=== PATIENT | male | born 1965 | race American Indian/Alaskan Native ===

== ENCOUNTER 2017-10-27 17:08 | Emergency (ER) | payer OTHER ==
[2017-10-27] MEDS ORDERED: NORCO 5/325 PO ONE (23:34)
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
[2017-10-27] MEDS ORDERED: FLEXERIL PO ONE (23:35)
--- NOTE | 2017-10-28 00:21 | Cat Scan Report ---
FINAL REPORT EXAM: CT LUMBAR SPINE WO CON HISTORY: lower back pain with radiculopathy TECHNIQUE: Routine axial imaging was obtained of the lumbar spine with sagittal coronal reconstructions. FINDINGS: The disc heights and alignment appear normal. There is no evidence of fracture. There is mild facet arthropathy changes bilaterally at the L5-S1 level. There is mild left-sided facet arthropathy changes at the L3-4 level. There is mild bulging of the annuli at the L3-4 and L4-5 levels with borderline canal size at both levels. Nerve root impingement is not seen. The surrounding soft tissues are unremarkable. IMPRESSION: Mild bulging of the annuli at the L3-4 and L4-5 levels with borderline canal size at both levels. Bilateral facet arthropathy changes the L5-S1 level and on the left side at the L3-4 levels. No evidence of fracture.
--- NOTE | 2017-10-28 00:26 | Cat Scan Report ---
FINAL REPORT EXAM: CT CERVICAL SPINE WO CON HISTORY: neck pain with radiculopathy TECHNIQUE: Routine axial imaging was obtained of the cervical spine without IV contrast with sagittal coronal reconstructions. FINDINGS: At the C2-C3 level there is [id number] narrowing of the disc. The canal size is normal. The nerve roots exit normally. The facet joints are well maintained At the C3-C4 level the disc height is preserved. The canal size is normal. The nerve roots exit normally. The facet joints are well maintained. At the C4-C5 level the disc height is preserved. The canal size is normal. The nerve roots exit normally. The facet joints are well maintained. At the C5-C6 level there is moderate narrowing of the disc with endplate spurring. The canal size is normal. There is left-sided neural foraminal impingement by spur formation. At the C6 cc level the disc height is preserved. The canal size is normal. The nerve roots exit normally. The overall alignment is normal. The prevertebral soft tissues appear normal. C1-C2 articulation appears intact. IMPRESSION: Degenerative arthritic changes of the C2-C3 and C5-C6 levels as described.
[2017-10-28 01:31] VITALS: BP 122/81
== END 2017-10-28 01:30 | disposition home or self-care (01) ==
LOC: ED 17:08
DX: S16.1XXA Strain of muscle, fascia and tendon at neck level, initial encounter (principal); M54.42 Lumbago with sciatica, left side; M54.12 Radiculopathy, cervical region; M51.36 Other intervertebral disc degeneration, lumbar region; F17.200 Nicotine dependence, unspecified, uncomplicated; V43.52XA Car driver injured in collision with other type car in traffic accident, initial encounter; Y93.89 Activity, other specified; Y92.89 Other specified places as the place of occurrence of the external cause; Y99.8 Other external cause status
CPT/HCPCS: 72125; 72131

== ENCOUNTER 2018-04-13 18:26 | Emergency (ER) | payer OTHER ==
[2018-04-13 18:32] VITALS: BP 129/75
[2018-04-13] MEDS ORDERED: MOTRIN ONE (21:13)
[2018-04-13] MEDS ORDERED: TYLENOL ONE (21:16)
[2018-04-13] MEDS ORDERED: TYLENOL PO ONE (21:16)
[2018-04-13] MEDS ORDERED: MOTRIN PO ONE (21:17)
--- NOTE | 2018-04-13 21:49 | Emergency Department Report ---
ED Back Pain/Injury HPI - General Chief Complaint: Back Pain/Injury Stated Complaint: LOWER BACK PAIN Time Seen by Provider: 04/13/18 21:25 Source: patient, family Limitations: No Limitations - History of Present Illness Initial Comments: This is a 52-year-old male here complaining of lower back pain that started 6 days ago. He said he fell out of a box truck at work. He reports that pain is radiating down his left lower extremity. Pain is 8 out of 10 and a can. Denies any loss of bowel or bladder function. He said he had a x-ray done when the accident happened through his work place and they stated that his back was fine. He said he states can Motrin for pain but is not helping his pain. Denies any numbness or tingling to her extremities. Pain is localized to his lower back area with radiation to his left leg. Denies any urinary burning, frequency or urgency. Pain exacerbated by movement and no alleviating factors. Denies any fever or chills. MD Complaint: back pain, back injury, fall Onset/Timin -: days(s) Similar Symptoms Previously: No (6 days ago when the accident happened) Place: work Radiation: left leg Severity: severe Severity scale (0 -10): 8 Quality: aching Consistency: constant Improves With: none Worsens With: movement, walking Context: fall Associated Symptoms: difficulty walking. denies: confusion, weakness, chest pain, numbness, cough, difficulty urinating, diaphoresis, incontinence, fever/ chills, constipation, headaches, abdominal pain, loss of appetite, malaise, nausea/vomiting, rash, seizure, shortness of breath, syncope Treatments Prior to Arrival: NSAIDS - Related Data Previous Rx's Medication Instructions Recorded Last Taken Type Metaxalone [Skelaxin] 800 mg PO TID PRN #15 tablet 10/28/17 Unknown Rx traMADol [Ultram 50 MG tab] 50 mg PO Q6HR PRN #20 tablet 04/14/18 Unknown Rx Allergies Allergy/AdvReac Type Severity Reaction Status Date / Time ibuprofen [From Motrin] AdvReac Unknown Verified 04/13/18 21:23 ED Review of Systems ROS: Stated complaint: LOWER BACK PAIN Other details as noted in HPI Constitutional: denies: chills, fever Eyes: denies: eye pain, eye discharge, vision change ENT: denies: ear pain, throat pain Respiratory: denies: cough, shortness of breath, SOB at rest, stridor, wheezing Cardiovascular: denies: chest pain, palpitations, dyspnea on exertion, edema, syncope, paroxysmal nocturnal dyspnea Gastrointestinal: denies: abdominal pain, nausea, vomiting, diarrhea Genitourinary: denies: urgency, dysuria, frequency, hematuria, discharge, testicular pain, testicular mass Musculoskeletal: back pain, arthralgia. denies: joint swelling, myalgia Skin: denies: rash, lesions Neurological: abnormal gait. denies: headache, weakness, numbness, paresthesias , vertigo ED Past Medical Hx - Past Medical History Previous Medical History?: Yes Additional medical history: ulcers - Surgical History Past Surgical History?: Yes Additional Surgical History: abdominal 2000 - Family History Family history: hypertension - Social History Smoking Status: Current Every Day Smoker Substance Use Type: None - Medications Home Medications: Home Medications Medication Instructions Recorded Confirmed Last Taken Type Metaxalone [Skelaxin] 800 mg PO TID PRN #15 tablet 10/28/17 Unknown Rx traMADol [Ultram 50 MG tab] 50 mg PO Q6HR PRN #20 tablet 04/14/18 Unknown Rx ED Physical Exam - General Limitations: No Limitations General appearance: alert, in no apparent distress - Head Head exam: Present: atraumatic, normocephalic, normal inspection, other (normal exam) - Eye Eye exam: Present: normal appearance, PERRL, EOMI. Absent: nystagmus Pupils: Present: normal accommodation - ENT ENT exam: Present: normal exam, normal orophraynx, mucous membranes moist - Neck Neck exam: Present: normal inspection, full ROM, other (no C-spine tenderness). Absent: tenderness, lymphadenopathy - Respiratory Respiratory exam: Present: normal lung sounds bilaterally. Absent: respiratory distress, chest wall tenderness - Cardiovascular Cardiovascular Exam: Present: regular rate, normal rhythm, normal heart sounds. Absent: systolic murmur, diastolic murmur - GI/Abdominal GI/Abdominal exam: Present: soft, normal bowel sounds. Absent: distended, rigid , organomegaly, mass - Extremities Exam Extremities exam: Present: normal inspection, full ROM, normal capillary refill , other (No cce. + 2 pulses in all extremities, no neurovascular compromise). Absent: tenderness, pedal edema, joint swelling, calf tenderness - Expanded Lower Extremity Exam Left Hip exam: Present: normal inspection, full ROM, pelvic stability. Absent: tenderness, swelling, abrasion, laceration, ecchymosis, deformity, crepidus, dislocation, erythema, external rotation, internal rotation, shortening Upper Leg exam: Present: normal inspection, full ROM. Absent: tenderness, swelling, abrasion, laceration, ecchymosis, deformity, crepidus, dislocation, erythema Knee exam: Present: normal inspection, tenderness, full knee extension. Absent : swelling, abrasion, laceration, ecchymosis, deformity, crepidus, dislocation, erythema, effusion, pain w/ pronation/supination, posterior draw sign, pain/ laxity with valgus, pain/laxity with varus Lower Leg exam: Present: normal inspection, full ROM. Absent: tenderness, swelling, abrasion, laceration, ecchymosis, deformity, crepidus, dislocation, erythema, palpable cord, José Miguel's sign Ankle exam: Present: normal inspection, full ROM. Absent: tenderness, swelling , abrasion, laceration, ecchymosis, deformity, crepidus, dislocation, erythema, anterior draw sign Foot/Toe exam: Present: normal inspection, full ROM. Absent: tenderness, swelling, abrasion, laceration, ecchymosis, deformity, crepidus, dislocation, erythema, amputation, puncture wound, foreign body, calcaneal tenderness, tenderness at base of 5th metatarsal, nail avulsion, subungual hematoma Neuro vascular tendon exam: Present: no vascular compromise. Absent: pulse deficit, abnormal cap refill, motor deficit, sensory deficit, tendon deficit, extremity cold to touch, pallor, abnormal 2-point discrimination, decreased fine /light touch, foot drop, peroneal nerve deficit, significant pain with passive ROM of distal joint Gait: Positive: observed and normal - Back Exam Back exam: Present: normal inspection, full ROM, vertebral tenderness (lumbar vertebral), other (ambulates without any difficulties). Absent: tenderness, CVA tenderness (R), CVA tenderness (L), muscle spasm, paraspinal tenderness, rash noted - Expanded Back Exam Expanded Back exam: Absent: saddle anesthesia Back exam: Positive Straight Leg Raise: Left, Negative Straight Leg Raising: Right - Neurological Exam Neurological exam: Present: alert, oriented X3, normal gait, reflexes normal. Absent: motor sensory deficit - Expanded Neurological Exam Expanded Neurological exam: Absent: innattentive, memory loss-remote event, memory loss- recent event, ataxia, receptive aphasia, expressive aphasia, total aphasia, tremor, protecting the airway Patient oriented to: Present: person, place, time Speech: Present: fluid speech Cranial nerves: EOM's Intact: Normal, Gag Reflex: Normal, Tongue Deviation: Normal, Nystagmus: Normal, Facial Sensation: Normal Cerebellar function: Romberg: Normal Upper motor neuron: Pronator Drift: Normal, Sensory Extinction: Normal Sensory exam: Upper Extremity Light Touch: Normal, Upper Extremity Temperature: Normal, UE 2 Point Discrimination: Normal, Lower Extremity Light Touch: Normal, Lower Extremity Temperature: Normal, LE 2 Point Discrimination: Normal Motor strength exam: RUE: 5, LUE: 5, RLE: 5, LLE: 5 Best Eye Response (Pamela): (4) open spontaneously Best Motor Response (Pamela): (6) obeys commands Best Verbal Response ([place]): (5) oriented [place] Total: 15 - Psychiatric Psychiatric exam: Present: normal affect, normal mood - Skin Skin exam: Present: warm, dry, intact, normal color. Absent: rash ED Course Vital Signs 04/13/18 18:29 Temperature 98.6 F Pulse Rate 75 Respiratory 18 Rate Blood Pressure 129/75 O2 Sat by Pulse 98 Oximetry - Reevaluation(s) Reevaluation #1: 04/13/18 21:50 Patient given Motrin in triage area for lower back pain with radiculopathy but he reports that it didn't help. He was also given Tylenol 975 mg in emergency area and he reported that does not help his pain. I will give him something else to manage his pain. Reevaluation #2: 04/13/18 23:10 Patient given Dilaudid 1 mg IM, Zofran 8 mg ODT, Decadron 10 mg IM relief of back pain. ED Medical Decision Making - Radiology Data Radiology results: report reviewed Patient: HONORIO JOHNSON MR#: [id number] : 1965 Acct:[id number] Age/Sex: 52 / M ADM Date: 04/13/18 Loc: ED Attending Dr: Ordering Physician: BHANU BRICE Date of Service: 04/13/18 Procedure(s): CT thoracic spine wo con Accession Number(s): [id number] cc: BHANU BRICE FINAL REPORT PROCEDURE: CT THORACIC SPINE WO CON TECHNIQUE: Computerized axial tomography of the thoracic spine was performed from C7 - L1 without contrast material. HISTORY: fall with back pain and lt radiculopathy COMPARISON: No prior studies are available for comparison. FINDINGS: Vertebral alignment and height are within normal limits. Mild degree osteophyte formation is noted involving bilateral 7th through 9th costovertebral joints. An acute fracture is not identified. There is no evidence of any spinal canal or neural foraminal compromise. Pre and paravertebral soft tissues are within normal limits. IMPRESSION: No acute abnormality Osteoarthritis involving costovertebral joints. Transcribed By: [facility] [place] Dictated By: AASHISH SMITH Electronically Authenticated By: AASHISH SMITH Signed Date/Time: 04/13/182303 DD/ 03 TD/TT: 04/13/182303 Patient: HONORIO JOHNSON MR#: [id number] : 1965 Acct:[id number] Age/Sex: 52 / M ADM Date: 04/13/18 Loc: ED Attending Dr: Ordering Physician: BHANU BRICE Date of Service: 04/13/18 Procedure(s): CT lumbar spine wo con Accession Number(s): [id number] cc: BHANU BRICE FINAL REPORT PROCEDURE: CT LUMBAR SPINE WO CON TECHNIQUE: Computerized axial tomography of the lumbar spine was performed from T12 to the sacrum without contrast material. HISTORY: fall with back pain and radiculopathy COMPARISON: No prior studies are available for comparison. FINDINGS: Alignment is satisfactory. No acute fracture. L1-2: No significant abnormality. L2-3: No significant abnormality. L3-4: Mild disc bulge flattening the thecal sac. Mild facet spurring. No canal stenosis. L4-5: Disc bulge flattening the thecal sac. No disc herniation. No canal stenosis. L5-S1: Disc space is well preserved. Mild facet spurring. Other: None. IMPRESSION: No fracture. No disc herniation. Mild degenerative change. Transcribed By: BR Dictated By: FELICIA ARCOS MD Electronically Authenticated By: FELICIA ARCOS MD Signed Date/Time: 04/13/182301 DD/ 01 TD/TT: 04/13/182301 - Medical Decision Making This is a 52-year-old male who sustained accident while at work 6 days ago. He reports that he fell off of that box struck and injured his lower back. He is now having lower back pain and radiation of pain down to his left lower extremity. Patient said he was seen by her workplace doctor and x-ray of his back was done and they did not find anything. He said despite taking Motrin he still having pain and is here to be evaluated. I saw and examined by myself and he is neurologically intact, neck and upper back exam is normal. Extremity exam is normal without any motor or sensory deficits. Lower back exam normal except he has tenderness to midline L-spine, positive left SLR, limited range of motion to his lower back. Patient had CT scan of his thoracic spine which showed degenerative arthritis and he has CT scan of his lumbar spine was dictated by radiologist and report reviewed by myself and shows L3-4: Mild disc bulge flattening the thecal sac. Mild facet spurring. No canal stenosis.L4-5: Disc bulge flattening the thecal sac. No disc herniation. No canal stenosis. CT scan results explained to patient in detail and he voiced understanding. I discussed with him he'll need to orthopedic doctor probably refer him to neurosurgeon if needed. Pain is controlled. A/P 1: Degenerative arthritis thoracic spine-referred to orthopedic doctor 2: 5 facet spurring and L3 to 4 and L4 to 5 disc bulge-will refer to orthopedic doctor 3-lumbar back pain with left lower extremity radiculopathy-better with Dilaudid one milligrams IM, Decadron 10 mg IM. He was given Zofran to prevent nausea 8 mg ODT. Patient was given Tylenol 975 mg initially which did not take his pain away. Will be discharged home on Ultram. 4-fall injury causing back pain-stable Educated patient on diagnosis, medication, treatment plan and he voiced understanding. Patient discharged home in stable condition with his family. Vital signs are stable afebrile and pain is controlled. Discharge home to follow up with his primary care physician and orthopedic doctor in 2-3 days. He voiced understanding I also explained to him that he needs to return to the emergency room if his symptoms worsens and he voiced understanding. Patient discharged home with prescription for Ultram. - Differential Diagnosis fracture, subluxation, herniation, strain, disc bulge, stenosis, MSK pain Critical care attestation.: If time is entered above; I have spent that time in minutes in the direct care of this critically ill patient, excluding procedure time. ED Disposition Clinical Impression: Encounter for post fall examination, Bulging lumbar disc, DDD (degenerative disc disease), lumbar Lower back pain Qualifiers: Chronicity: acute Back pain laterality: midline Sciatica presence: with sciatica Sciatica laterality: sciatica of left side Qualified Code(s): M54.42 - Lumbago with sciatica, left side Disposition: TO HOME OR SELFCARE Is pt being admited?: No Does the pt Need Aspirin: No Condition: Stable Instructions: Acute Low Back Pain (ED), Arthralgia (ED), Lumbar Radiculopathy ( ED), Degenerative Disc Disease (ED), Osteoarthritis (ED) Additional Instructions: Please follow up with a primary care doctor and also orthopedic doctor in 2-3 days You have this bulge and your lower back at L3 to 4 and L4 4 to 5. He'll need to be followed by orthopedic doctor. See Discharge instruction in [facility] therapy Take tramadol as prescribed for muscle spasm but please do not drive or operate heavy machinery while taking this medication as it causes drowsiness If you condition worsens, return to the emergency room. Prescriptions: traMADol [Ultram 50 MG tab] 50 mg PO Q6HR PRN #20 tablet PRN Reason: Pain Referrals: PRIMARY CARE, [Primary Care Provider] - 2-3 Days PEYTON GAMEZ MD [Staff Physician] - 2-3 Days Forms: Work/School Release Form(ED)
[2018-04-13] MEDS ORDERED: DILAUDID IM ONE (21:50)
[2018-04-13] MEDS ORDERED: ZOFRAN ODT PO ONE (21:50)
[2018-04-13] MEDS ORDERED: DECADRON IM STA (21:51)
--- NOTE | 2018-04-13 23:08 | Cat Scan Report ---
FINAL REPORT PROCEDURE: CT LUMBAR SPINE WO CON TECHNIQUE: Computerized axial tomography of the lumbar spine was performed from T12 to the sacrum without contrast material. HISTORY: fall with back pain and radiculopathy COMPARISON: No prior studies are available for comparison. FINDINGS: Alignment is satisfactory. No acute fracture. L1-2: No significant abnormality. L2-3: No significant abnormality. L3-4: Mild disc bulge flattening the thecal sac. Mild facet spurring. No canal stenosis. L4-5: Disc bulge flattening the thecal sac. No disc herniation. No canal stenosis. L5-S1: Disc space is well preserved. Mild facet spurring. Other: None. IMPRESSION: No fracture. No disc herniation. Mild degenerative change.
--- NOTE | 2018-04-13 23:08 | Cat Scan Report ---
FINAL REPORT PROCEDURE: CT THORACIC SPINE WO CON TECHNIQUE: Computerized axial tomography of the thoracic spine was performed from C7 - L1 without contrast material. HISTORY: fall with back pain and lt radiculopathy COMPARISON: No prior studies are available for comparison. FINDINGS: Vertebral alignment and height are within normal limits. Mild degree osteophyte formation is noted involving bilateral 7th through 9th costovertebral joints. An acute fracture is not identified. There is no evidence of any spinal canal or neural foraminal compromise. Pre and paravertebral soft tissues are within normal limits. IMPRESSION: No acute abnormality Osteoarthritis involving costovertebral joints.
== END 2018-04-14 01:08 | disposition home or self-care (01) ==
LOC: ED 18:26
DX: M54.42 Lumbago with sciatica, left side (principal); M51.36 Other intervertebral disc degeneration, lumbar region; F17.200 Nicotine dependence, unspecified, uncomplicated; Z88.6 Allergy status to analgesic agent; W20.8XXA Other cause of strike by thrown, projected or falling object, initial encounter; Y93.89 Activity, other specified; Y92.009 Unspecified place in unspecified non-institutional (private) residence as the place of occurrence of the external cause; Y99.8 Other external cause status
CPT/HCPCS: 72128; 72131; 96372; 99283; J1100; J1170; Q0162

== ENCOUNTER 2018-07-09 08:42 | Emergency (ER) | payer SELFPAY ==
[2018-07-09 09:24] LABS: Basophils # (Auto) 0.1 K/mm3 (0.0-0.1); Eosinophils % (Auto) 0.9 % (0.0-4.3); Hematocrit 38.2 % (35.5-45.6); Lymphocytes # (Auto) 1.6 K/mm3 (1.2-5.4); Lymphocytes % (Auto) 28.4 % (13.4-35.0); Mean Corpuscular HGB Conc 34 % (32-34); Mean Corpuscular Hemoglobin 32 pg (28-32); Mean Corpuscular Volume 95 fl (84-94); Monocytes # (Auto) 0.3 K/mm3 (0.0-0.8); Monocytes % (Auto) 6.2 % (0.0-7.3); Platelet Count 240 K/mm3 (140-440); Red Blood Count 4.04 M/mm3 (3.65-5.03); Red Cell Distribution Width 13.2 % (13.2-15.2)
[2018-07-09 09:39] LABS: BUN/Creatinine Ratio 8; Blood Urea Nitrogen 8 mg/dL (9-20); Calcium 8.2 mg/dL (8.4-10.2); Hemolysis Index 7
[2018-07-09] MEDS ORDERED: NITRO-BID 2% TP ONE (10:23)
[2018-07-09] MEDS ORDERED: SUBLIMAZE IV ONE (10:23)
[2018-07-09] MEDS ORDERED: PLAVIX PO ONE (10:23)
[2018-07-09] MEDS ORDERED: ZOFRAN IV ONE (10:23)
--- NOTE | 2018-07-09 10:29 | Emergency Department Report ---
HPI - General Chief Complaint: Chest Pain Time Seen by Provider: 07/09/18 10:03 - HPI HPI: Room 7 The patient is a 53-year-old male presenting with chief complaint of chest pain. The patient states his symptoms began this morning with pain in his chest. Patient describes the pain as sharp and intermittent in nature and associated with shortness of breath, diaphoresis and nausea without vomiting. Patient states pain radiates to his left neck and left shoulder. Patient is a pain score 8/10. Patient states his last stress test occurred approximately 4 years ago but he has never had a cardiac catheterization Location: [See above] Duration: [See above] Quality: Sharp Severity: 8/10 Modifying factors: [see above] Context: [see above] Mode of transportation: [not driving] ED Past Medical Hx - Past Medical History Additional medical history: ulcers - Surgical History Past Surgical History?: No Additional Surgical History: Abdominal surgery for perforated ulcer 1999 - Family History Family history: no significant - Social History Smoking Status: Current Every Day Smoker (1 pack per day) Substance Use Type: None (denies illicit drug use) - Medications Home Medications: Home Medications Medication Instructions Recorded Confirmed Last Taken Type Metaxalone [Skelaxin] 800 mg PO TID PRN #15 tablet 10/28/17 Unknown Rx traMADol [Ultram 50 MG tab] 50 mg PO Q6HR PRN #20 tablet 04/14/18 Unknown Rx Methocarbamol [Robaxin-750] 750 mg PO Q12H PRN #12 tablet 07/02/18 Unknown Rx ED Review of Systems ROS: Stated complaint: CHEST/BACK/LEFT SHOULDER PAIN Other details as noted in HPI Constitutional: diaphoresis Eyes: denies: eye pain ENT: denies: throat pain Respiratory: shortness of breath Cardiovascular: chest pain Endocrine: no symptoms reported Gastrointestinal: nausea. denies: vomiting Genitourinary: denies: dysuria Musculoskeletal: denies: back pain Neurological: denies: headache Physical Exam - Physical Exam Vital Signs: Vital Signs 07/09/18 07/09/18 08:52 09:48 Temperature 98.6 F Pulse Rate 88 Respiratory 18 10 L Rate Blood Pressure 139/67 O2 Sat by Pulse 98 Oximetry Physical Exam: GENERAL: The patient is well-developed well-nourished male lying on stretcher not appearing to be in acute distress. [] HEENT: Normocephalic. Atraumatic. Extraocular motions are intact. Patient has moist mucous membranes. NECK: Supple. Trachea midline CHEST/LUNGS: Clear to auscultation. There is no respiratory distress noted. HEART/CARDIOVASCULAR: Regular. There is no tachycardia. There is no gallop rub or murmur. ABDOMEN: Abdomen is soft, nontender. Patient has normal bowel sounds. There is no abdominal distention. SKIN: There is no rash. There is no edema. There is no diaphoresis. NEURO: The patient is awake, alert, and oriented. The patient is cooperative. The patient has normal speech MUSCULOSKELETAL: There is no evidence of acute injury. ED Course Vital Signs 07/09/18 07/09/18 08:52 09:48 Temperature 98.6 F Pulse Rate 88 Respiratory 18 10 L Rate Blood Pressure 139/67 O2 Sat by Pulse 98 Oximetry ED Medical Decision Making - Lab Data Result diagrams: 07/09/18 09:04 07/09/18 09:04 Laboratory Tests 07/09/18 07/09/18 09:04 09:04 WBC 5.6 RBC 4.04 Hgb 13.0 Hct 38.2 MCV 95 H MCH 32 MCHC 34 RDW 13.2 Plt Count 240 Lymph % (Auto) 28.4 [place] % (Auto) 6.2 Eos % (Auto) 0.9 Baso % (Auto) 1.0 Lymph # 1.6 [place] # 0.3 Eos # 0.0 Baso # 0.1 Seg Neutrophils % 63.5 Seg Neutrophils # 3.6 Sodium 141 Potassium 3.4 L Chloride 106.9 Carbon Dioxide 24 Anion Gap 14 BUN 8 L Creatinine 1.0 Estimated GFR > 60 BUN/Creatinine Ratio 8 Glucose 101 H Calcium 8.2 L Troponin T < 0.010 - EKG Data -: EKG Interpreted by Me EKG shows normal: sinus rhythm Rate: normal - EKG Data When compared to previous EKG there are: previous EKG unavailable Interpretation: nonspecific ST-T wave mar (early repolarization) - Radiology Data Radiology results: report reviewed (chest x-ray), image reviewed (chest x-ray) interpreted by me: Chest x-ray-no focal infiltrates, no pneumothorax [facility] [address] [place] [address] XRay Report Signed Patient: HONORIO JOHNSON MR#: [id number] : 1965 Acct:[id number] Age/Sex: 53 / M ADM Date: 07/09/18 Loc: ED Attending Dr: Ordering Physician: MARGE DAVE MD Date of Service: 07/09/18 Procedure(s): XR chest 1V ap Accession Number(s): [id number] cc: MARGE DAVE MD Fluoro Time In Minutes: AP CHEST: HISTORY: chest pain AP view of the chest demonstrates a normal mediastinal and cardiac contour with clear lungs and normal bony and soft tissue structures. IMPRESSION: Unremarkable AP chest. Transcribed By: TTR Dictated By: CARIE GILLIAM JR, MD Electronically Authenticated By: CARIE GILLIAM JR, MD Signed Date/Time: 07/09/18 105 DD/ 1050 TD/TT: 07/09/18 1050 - Differential Diagnosis ACS, GERD, pericarditis Critical care attestation.: If time is entered above; I have spent that time in minutes in the direct care of this critically ill patient, excluding procedure time. ED Disposition Clinical Impression: Chest pain Disposition: - OP ADMIT IP TO THIS HOSP Is pt being admited?: Yes Does the pt Need Aspirin: Yes Condition: Fair Instructions: Chest Pain (ED) Referrals: PRIMARY CARE, [Primary Care Provider] - 3-5 Days Time of Disposition: 11:01 (Hospitalist notified (Dr Lazo))
--- NOTE | 2018-07-09 10:52 | XRay Report ---
AP CHEST: HISTORY: chest pain AP view of the chest demonstrates a normal mediastinal and cardiac contour with clear lungs and normal bony and soft tissue structures. IMPRESSION: Unremarkable AP chest.
--- NOTE | 2018-07-09 14:33 | Cat Scan Report ---
CTA CHEST: HISTORY: Dyspnea. COMPARISON: none. TECHNIQUE: Helical CT in 1.25mm intervals following IV contrast. Pulmonary embolus protocol. Sagittal and coronal reformatted images. Rotational MIP images. FINDINGS: Contrast bolus is satisfactory. No pulmonary embolus is identified. Thyroid gland: 2 cm hypodense left thyroid lobe nodule is noted. The right lobe is normal. Tracheobronchial tree: Normal. Esophagus: Normal. Heart: Normal. Pericardium: A small pericardial effusion measures up to 1 cm in thickness adjacent to the left ventricle. Mediastinum: No evidence for mediastinal mass or adenopathy. Lung Wilson: Minor linear atelectasis or scarring is noted in both lower lung zones. No evidence for mass or pneumonia. Pleural Spaces: Normal. Musculoskeletal: Normal. IMPRESSION: No evidence for pulmonary embolus. Small pericardial effusion. Pericarditis?
[2018-07-09 14:56] VITALS: BP 117/44
== END 2018-07-09 16:49 | disposition admitted as inpatient to this hospital (09) ==
LOC: ED 08:42
DX: R07.89 Other chest pain (principal); R06.02 Shortness of breath; R11.0 Nausea; F17.210 Nicotine dependence, cigarettes, uncomplicated; R61 Generalized hyperhidrosis; Z88.6 Allergy status to analgesic agent
CPT/HCPCS: 36415; 71045; 71275; 80048; 84484; 85025; 85379; 93005; 93010; 96374; 96375; 99285; J2405; J3010; Q9967

== ENCOUNTER 2018-11-09 12:19 | Emergency (ER) | payer SELFPAY ==
[2018-11-09 12:33] VITALS: BP 127/76
--- NOTE | 2018-11-09 12:33 | Emergency Department Report ---
Blank Doc - Documentation Documentation: This is a 53-year-old male that presents epigastric pain with nausea and vomit ing x2 days. Patient also stated has some diarrhea. Deneis any radiation of pain. Patient denies any other complaints. This initial assessment diagnostic orders/clinical plan/treatment(s) is/are subject to change based on patient's health status, clinical progression and re- assessment by fellow clinical providers in the ED. Further treatment and workup at subsequent clinical providers discretion. Patient/guardians urged not to elope from ED s their condition may be serious if not clinically assessed and managed. Initial orders include: 1-Patient sent to [facility] for further evaluation and treatment 2- Labs
[2018-11-09 13:07] LABS: Basophils # (Auto) 0.1 K/mm3 (0.0-0.1); Basophils % (Auto) 1.4 % (0.0-1.8); Eosinophils % (Auto) 0.7 % (0.0-4.3); Hematocrit 41.9 % (35.5-45.6); Hemoglobin 14.2 gm/dl (11.8-15.2); Lymphocytes # (Auto) 1.5 K/mm3 (1.2-5.4); Mean Corpuscular HGB Conc 34 % (32-34); Mean Corpuscular Volume 94 fl (84-94); Monocytes # (Auto) 0.2 K/mm3 (0.0-0.8); Monocytes % (Auto) 4.1 % (0.0-7.3); Platelet Count 227 K/mm3 (140-440); Red Blood Count 4.45 M/mm3 (3.65-5.03); Red Cell Distribution Width 13.5 % (13.2-15.2)
[2018-11-09 13:28] LABS: Alanine Aminotransferase 20 units/L (7-56); Albumin 3.9 g/dL (3.9-5); BUN/Creatinine Ratio 7; Blood Urea Nitrogen 9 mg/dL (9-20); Calcium 8.7 mg/dL (8.4-10.2); Hemolysis Index 5
--- NOTE | 2018-11-09 14:07 | Emergency Department Report ---
HPI - General Chief Complaint: Abdominal Pain Time Seen by Provider: 11/09/18 12:31 - HPI HPI: 53-year-old male presents to ED complaining of epigastric pain for the past couple of days. Patient states that he has a history of acid reflux. Patient also states that he has some nausea. Patient states no migration or radiation to anywhere else in the abdomen. patient denies fever/unusual food or drink/chill/ chest pain ED Past Medical Hx - Past Medical History Previous Medical History?: Yes Hx Psychiatric Treatment: Yes (Depression) Additional medical history: ulcers - Surgical History Past Surgical History?: Yes Additional Surgical History: Abdominal surgery for perforated ulcer 1999 - Social History Smoking Status: Current Every Day Smoker Substance Use Type: Alcohol, Non Opiate Pain - Medications Home Medications: Home Medications Medication Instructions Recorded Confirmed Last Taken Type Zantac 100 mg PO DAILY 08/04/18 08/04/18 08/03/18 History Compressor, For Nebulizer [Ebase 1 each MC DAILY #1 each 11/09/18 Unknown Rx Controller] Dicyclomine [Bentyl] 10 mg PO BID #30 capsule 11/09/18 Unknown Rx Famotidine [Pepcid] 20 mg PO BID #30 tablet 11/09/18 Unknown Rx Mag Hydrox/Aluminum Hyd/Simeth 15 ml PO QID #1 bottle 11/09/18 Unknown Rx [Maalox Advanced Suspension] ED Review of Systems ROS: Stated complaint: ABD PAIN Other details as noted in HPI Comment: All other systems reviewed and negative Physical Exam - Physical Exam Vital Signs: Vital Signs 11/09/18 11/09/18 12:32 13:36 Temperature 98.5 F Pulse Rate 95 H Respiratory 18 20 Rate Blood Pressure 127/76 O2 Sat by Pulse 96 Oximetry Physical Exam: GENERAL: Alert and oriented x3, no apparent distress, Normal Gait, atraumatic. MOUTH:Mouth is well hydrated and without lesions. Tonsils nonerythematous or swollen, Uvula midline, Tongue not elevated. Mucous membranes are moist. Posterior pharynx clear, no exudate or lesions. Patent airways. LUNGS: Symetrical with respiration, No wheezing, no rales or crackles, CTAB. HEART: S1, S2 present, regular rate and rhythm without murmur, no rubs, no gallops. Non tender to palpation ABDOMEN: No organomegaly was noted,Positive bowel sounds, soft, and non- distended. . Nontender to palpation on all Quadrants, NO CVA tenderness. BACK: Full range of motion, no spinal tenderness, nontender to palpation. SKIN: Warm and dry, No lesions, No ulceration or induration present. ED Course Vital Signs 11/09/18 11/09/18 12:32 13:36 Temperature 98.5 F Pulse Rate 95 H Respiratory 18 20 Rate Blood Pressure 127/76 O2 Sat by Pulse 96 Oximetry ED Medical Decision Making - Lab Data Result diagrams: 11/09/18 12:49 11/09/18 12:49 - Medical Decision Making 53-year-old male presents with gastritis Patient given medication in the ED Patient reports feeling much better. Discussed follow-up with A Wafer Line Worker. Vital Signs Are Normal Patient Is in No Acute Distress. Patient's Instructions and States He Will Follow-Up. Patient Is Asking for a Compressor States That He Was Given Liquid Albuterol Bilateral Medical Is out Last Week and Was Not Given a Compressor and Is Asking for One Today. Discussed to Follow up with Primary Care Physician. Critical care attestation.: If time is entered above; I have spent that time in minutes in the direct care of this critically ill patient, excluding procedure time. ED Disposition Clinical Impression: Gastritis Disposition: DC-01 TO HOME OR SELFCARE Is pt being admited?: No Does the pt Need Aspirin: No Condition: Stable Instructions: Diet for Ulcers and Gastritis (ED), Gastritis (ED) Additional Instructions: DiMake sure to follow up with the primary care physician as discussed. Take all your medications as you've been prescribed. If you have any worsening symptoms or develop new symptoms please return to ED immediately. Prescriptions: Compressor, For Nebulizer [Ebase Controller] 1 each MC DAILY #1 each Dicyclomine [Bentyl] 10 mg PO BID #30 capsule Famotidine [Pepcid] 20 mg PO BID #30 tablet Mag Hydrox/Aluminum Hyd/Simeth [Maalox Advanced Suspension] 15 ml PO QID #1 bottle Referrals: ADRIENNE PARK MD [Primary Care Provider] - 3-5 Days Forms: Accompanied Note, Work/School Release Form(ED) Time of Disposition: 14:25
[2018-11-09] MEDS ORDERED: ALUM-MAG HYDROX-SIMETH 200-200-20MG/5ML PO ONE (14:08)
[2018-11-09] MEDS ORDERED: PEPCID PO ONE (14:08)
[2018-11-09] MEDS ORDERED: LIDOCAINE VISCOUS 2% PO ONE (14:08)
== END 2018-11-09 14:40 | disposition home or self-care (01) ==
LOC: ED 12:19
DX: K29.70 Gastritis, unspecified, without bleeding (principal); F32.9 Major depressive disorder, single episode, unspecified; F17.200 Nicotine dependence, unspecified, uncomplicated; Z88.6 Allergy status to analgesic agent
CPT/HCPCS: 36415; 80053; 83690; 85025

== ENCOUNTER 2021-01-25 01:15 | Emergency (ER) | payer OTHER ==
[2021-01-25 04:00] VITALS: BP 158/89
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
== END 2021-01-25 05:15 | disposition home or self-care (01) ==
LOC: ED 01:15
DX: S39.012A Strain of muscle, fascia and tendon of lower back, initial encounter (principal); I10 Essential (primary) hypertension; F32.9 Major depressive disorder, single episode, unspecified; F17.200 Nicotine dependence, unspecified, uncomplicated; Z79.899 Other long term (current) drug therapy; Z88.8 Allergy status to other drugs, medicaments and biological substances; V49.49XA Driver injured in collision with other motor vehicles in traffic accident, initial encounter; Y93.89 Activity, other specified; Y92.488 Other paved roadways as the place of occurrence of the external cause; Y99.8 Other external cause status
CPT/HCPCS: 99282

== ENCOUNTER 2021-02-20 22:41 | Emergency (ER) | payer SELFPAY ==
[2021-02-21 00:03] VITALS: BP 143/84
[2021-02-21 01:14] LABS: Basophils # (Auto) 0.1 K/mm3 (0.0-0.1); Eosinophils # (Auto) 0.1 K/mm3 (0.0-0.4); Hematocrit 40.3 % (35.5-45.6); Lymphocytes # (Auto) 2.2 K/mm3 (1.2-5.4); Lymphocytes % (Auto) 36.4 % (13.4-35.0); Mean Corpuscular HGB Conc 35 % (32-34); Mean Corpuscular Volume 94 fl (84-94); Monocytes # (Auto) 0.6 K/mm3 (0.0-0.8); Monocytes % (Auto) 10.6 % (0.0-7.3); Platelet Count 253 K/mm3 (140-440); Red Blood Count 4.28 M/mm3 (3.65-5.03); Red Cell Distribution Width 13.8 % (13.2-15.2)
[2021-02-21 01:14] LABS: Bilirubin,Urine NEG (Negative); Blood,Urine NEG (Negative); Color,Urine Yellow (Yellow); Mucus,Urine FEW /HPF; Protein,Urine <15 mg/dL mg/dL (Negative)
[2021-02-21 01:53] LABS: BUN/Creatinine Ratio 16; Blood Urea Nitrogen 22 mg/dL (9-20); Calcium 9.3 mg/dL (8.4-10.2); Hemolysis Index 6
[2021-02-21 01:57] LABS: Amphetamine Screen,Urine PRESUMPTIVE NEGATIVE; Benzodiazepines Screen,Urine PRESUMPTIVE NEGATIVE; Cannabinoid Screen,Urine PRESUMPTIVE NEGATIVE; Cocaine Screen,Urine PRESUMPTIVE POSITIVE; Methadone Screen,Urine PRESUMPTIVE NEGATIVE; Opiate Screen,Urine PRESUMPTIVE NEGATIVE
--- NOTE | 2021-02-21 03:10 | Emergency Department Report ---
<PARUL MANCERA - Last Filed: 02/21/21 05:57> ED Medical Clearance HPI - General Chief complaint: Medical Clearance Stated complaint: MEDICAL CLEARANCE Source: patient Mode of arrival: Ambulatory - History of Present Illness Initial comments: Patient is a 55-year-old -[place] male with a history of anxiety and depression, paranoid schizophrenia, bipolar disorder and hypertension who presents to the ED for medical clearance for psychiatric admission at [facility] for detox. Patient states that he already has an admission at [facility] and was sent to the ED for evaluation after it was noticed that her blood pressure was elevated. Patient denies dizziness, syncope, chest pain, shortness of breath, headache, nausea and vomiting, abdominal pain, diaphoresis, change in vision, seizures, back pain, hematuria or testicular pain. MD Complaint: medical clearance request (for admission to the [facility]) -: Gradual (chronic bipolar d/o schizophrenia) Reason for Medical Clearance: psychiatric condition Place: home Alledged Intoxication: No Compliant with Home Medications: No Traumatic Symptoms: denies traumatic injury Associated Symptoms: denies: chest pain, shortness of breath, palpitations, diaphoresis, denies other symptoms, confusion Treatments Prior to Arrival: none Home medications: Home Medications Medication Instructions Recorded Confirmed Last Taken Zantac 100 mg PO DAILY 08/04/18 08/04/18 08/03/18 Previous Rx's Medication Instructions Recorded Last Taken Type Compressor, For Nebulizer [Ebase 1 each MC DAILY #1 each 11/09/18 Unknown Rx Controller] Dicyclomine [Bentyl] 10 mg PO BID #30 capsule 11/09/18 Unknown Rx Famotidine [Pepcid] 20 mg PO BID #30 tablet 11/09/18 Unknown Rx Mag Hydrox/Aluminum Hyd/Simeth 15 ml PO QID #1 bottle 11/09/18 Unknown Rx [Maalox Advanced Suspension] Acetaminophen [Mapap] 500 mg PO Q6H PRN #30 capsule 01/25/21 Unknown Rx Cyclobenzaprine [Flexeril] 10 mg PO TID PRN #30 tablet 01/25/21 Unknown Rx Menthol/Camphor [[place] 1 applicatio TP Q6H PRN #1 tub 01/25/21 Unknown Rx Ointment] Allergies/Adverse reactions: Allergies Allergy/AdvReac Type Severity Reaction Status Date / Time ibuprofen [From Motrin] AdvReac Unknown Verified 07/09/18 08:52 ED Review of Systems Constitutional: other (Medical clearance for psychiatric admission). denies: chills, fever, malaise, weakness Eyes: denies: eye pain, eye discharge, vision change ENT: denies: ear pain, throat pain Respiratory: denies: cough, shortness of breath, wheezing Cardiovascular: denies: chest pain, palpitations Endocrine: no symptoms reported Gastrointestinal: denies: abdominal pain, nausea, diarrhea Genitourinary: denies: urgency, dysuria Musculoskeletal: denies: back pain, joint swelling, arthralgia Skin: denies: rash, lesions Neurological: denies: headache, weakness, paresthesias Psychiatric: denies: anxiety, depression Hematological/Lymphatic: denies: easy bleeding, easy bruising ED Past Medical Hx - Past Medical History Previous Medical History?: Yes Hx Hypertension: Yes Hx Psychiatric Treatment: Yes (Depression; paranoid schizophrenia; bipolar disorder) Additional medical history: ulcers - Surgical History Past Surgical History?: Yes Additional Surgical History: Abdominal surgery for perforated ulcer 1999 - Social History Smoking Status: Current Every Day Smoker Substance Use Type: None - Medications Home Medications: Home Medications Medication Instructions Recorded Confirmed Last Taken Type Zantac 100 mg PO DAILY 08/04/18 08/04/18 08/03/18 History Compressor, For Nebulizer [Ebase 1 each MC DAILY #1 each 11/09/18 Unknown Rx Controller] Dicyclomine [Bentyl] 10 mg PO BID #30 capsule 11/09/18 Unknown Rx Famotidine [Pepcid] 20 mg PO BID #30 tablet 11/09/18 Unknown Rx Mag Hydrox/Aluminum Hyd/Simeth 15 ml PO QID #1 bottle 11/09/18 Unknown Rx [Maalox Advanced Suspension] Acetaminophen [Mapap] 500 mg PO Q6H PRN #30 capsule 01/25/21 Unknown Rx Cyclobenzaprine [Flexeril] 10 mg PO TID PRN #30 tablet 01/25/21 Unknown Rx Menthol/Camphor [[place] 1 applicatio TP Q6H PRN #1 tub 01/25/21 Unknown Rx Ointment] ED Physical Exam - General Limitations: No Limitations General appearance: alert, in no apparent distress - Head Head exam: Present: atraumatic, normocephalic, normal inspection - Eye Eye exam: Present: normal appearance, PERRL, EOMI Pupils: Present: normal accommodation - ENT ENT exam: Present: normal exam, normal orophraynx, mucous membranes moist, TM's normal bilaterally, normal external ear exam - Neck Neck exam: Present: normal inspection, full ROM - Respiratory Respiratory exam: Present: normal lung sounds bilaterally. Absent: respiratory distress, wheezes, rales, rhonchi, chest wall tenderness, accessory muscle use, decreased breath sounds, prolonged expiratory - Cardiovascular Cardiovascular Exam: Present: normal rhythm, tachycardia, normal heart sounds. Absent: systolic murmur, diastolic murmur, rubs, gallop - GI/Abdominal GI/Abdominal exam: Present: soft, normal bowel sounds. Absent: tenderness, guarding, rebound, hyperactive bowel sounds, hypoactive bowel sounds - Extremities Exam Extremities exam: Present: normal inspection, full ROM, normal capillary refill - Back Exam Back exam: Present: normal inspection, full ROM. Absent: tenderness, CVA tenderness (R), CVA tenderness (L), muscle spasm, paraspinal tenderness - Neurological Exam Neurological exam: Present: alert, oriented X3, CN II-XII intact, normal gait, reflexes normal - Psychiatric Psychiatric exam: Present: normal affect, normal mood, anxious - Skin Skin exam: Present: warm, dry, intact, normal color. Absent: rash ED Medical Decision Making - Lab Data Result diagrams: 02/21/21 00:30 02/21/21 Unknown - Medical Decision Making This is a 55-year-old -[place] male with a history of anxiety and depression, paranoid schizophrenia, bipolar disorder and hypertension who presents to the ED for medical clearance for psychiatric admission at [facility] for detox. Patient states that he already has an admission at [facility] and was sent to the ED for evaluation after it was noticed that her blood pressure was elevated. In the ED, patient is alert and oriented x3 and is not in any distress, afebrile but tachycardic in triage. Lab test results were reviewed and are all nonactionable except for elevated BUN and creatinine levels consistent with dehydration. Urinalysis is unremarkable and urine drug screen was positive for cocaine. Patient already has an admission at [facility]. Patient received normal saline 1 L IV bolus x1 and BMP was repeated. Repeat BMP after normal saline 1 L IV bolus revealed BUN of 20 and creatinine of 1.4. Patient was therefore discharged to follow-up with [facility] for further mental health evaluation. On reevaluation, patient is hemodynamically stable. Patient was discharged from the ED and advised to follow-up with [facility] as previously advised. - Differential Diagnosis Dehydration; anxiety; polysubstance abuse; ED Disposition Clinical Impression: Medical clearance for psychiatric admission, Cocaine abuse, Dehydration Disposition: DC-01 TO HOME OR SELFCARE Is pt being admited?: No Does the pt Need Aspirin: No Condition: Stable Instructions: Substance Use Disorder and Mental Illness, Medical Screening Exam Additional Instructions: All lab test results were reviewed. Your therefore medically cleared to follow- up at [facility] for further evaluation. Referrals: [facility] [Provider Group] - 3-5 Days Time of Disposition: 03:16 Print Language: MAORI <LAURITA ANGUIANO - Last Filed: 02/23/21 07:02> ED Review of Systems ROS: Stated complaint: MEDICAL CLEARANCE Other details as noted in HPI ED Course Vital Signs 02/21/21 02/21/21 00:00 06:25 Temperature 98.6 F Pulse Rate 103 H 88 Respiratory 18 16 Rate Blood Pressure 143/84 O2 Sat by Pulse 96 99 Oximetry ED Medical Decision Making - Lab Data Result diagrams: 02/21/21 00:30 02/21/21 Unknown ED Disposition Is pt being admited?: No Does the pt Need Aspirin: No
[2021-02-21] MEDS ORDERED: SODIUM CHLORIDE 0.9% 1000 ML 1,000 ML IV ONE (03:17)
[2021-02-21 05:40] LABS: BUN/Creatinine Ratio 14; Blood Urea Nitrogen 20 mg/dL (9-20); Calcium 8.1 mg/dL (8.4-10.2); Hemolysis Index 13
== END 2021-02-21 06:25 | disposition home or self-care (01) ==
LOC: ED 22:41 → EEVIPCON 22:41 → ED 02-21 06:25
DX: Z04.6 Encounter for general psychiatric examination, requested by authority (principal); E86.0 Dehydration; F14.10 Cocaine abuse, uncomplicated; I10 Essential (primary) hypertension; F31.9 Bipolar disorder, unspecified; F20.9 Schizophrenia, unspecified; F17.200 Nicotine dependence, unspecified, uncomplicated; Z98.890 Other specified postprocedural states; Z88.6 Allergy status to analgesic agent; Z79.899 Other long term (current) drug therapy
CPT/HCPCS: 36415; 80048; 80307; 81001; 85025; 96360; 99284; J7030; 80320; G0480

== ENCOUNTER 2021-03-02 02:38 | Emergency (ER) | payer BC ==
--- NOTE | 2021-03-02 03:29 | XRay Report ---
CHEST 2 VIEWS INDICATION / CLINICAL INFORMATION: Dyspnea. COMPARISON: 07/09/2018 FINDINGS: SUPPORT DEVICES: None. HEART / MEDIASTINUM: No significant abnormality. LUNGS / PLEURA: There is linear atelectasis in the right lung base. The lungs are otherwise well-expa nded and clear. No interstitial pulmonary edema. No pleural effusion. No pneumothorax. ADDITIONAL FINDINGS: No significant additional findings. IMPRESSION: 1. Right basilar linear atelectasis. 2. Otherwise negative exam. Signer Name: Shey Soto MD Signed: 03/02/2021 3:24 AM Workstation Name: [id number]
[2021-03-02 03:47] LABS: Basophils % (Auto) 0.5 % (0.0-1.8); Eosinophils # (Auto) 0.1 K/mm3 (0.0-0.4); Eosinophils % (Auto) 0.9 % (0.0-4.3); Hemoglobin 12.8 gm/dl (11.8-15.2); Lymphocytes % (Auto) 23.2 % (13.4-35.0); Mean Corpuscular HGB Conc 35 % (32-34); Mean Corpuscular Volume 95 fl (84-94); Monocytes # (Auto) 0.7 K/mm3 (0.0-0.8); Monocytes % (Auto) 8.6 % (0.0-7.3); Platelet Count 257 K/mm3 (140-440); Red Blood Count 3.91 M/mm3 (3.65-5.03); Red Cell Distribution Width 13.9 % (13.2-15.2)
[2021-03-02 04:10] LABS: Alanine Aminotransferase 33 units/L (7-56); Albumin 4.1 g/dL (3.9-5); BUN/Creatinine Ratio 16; Blood Urea Nitrogen 23 mg/dL (9-20); Calcium 8.6 mg/dL (8.4-10.2); Hemolysis Index 8
[2021-03-02] MEDS ORDERED: ALBUTEROL 2.5 MG/3 ML NEBU IH ONE (04:13)
[2021-03-02] MEDS ORDERED: IPRATROPIUM 0.02% NEBU 2.5 ML IH ONE (04:13)
[2021-03-02] MEDS ORDERED: HYDROcodone/ACETAMINOPHEN 5-325 MG TAB PO ONE (04:14)
[2021-03-02 04:44] LABS: Creatine Kinase MB 4.7 ng/mL (0.0-4.0)
[2021-03-02 05:26] VITALS: BP 129/60
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
--- NOTE | 2021-03-09 11:05 | Electrocardiograph Report ---
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
== END 2021-03-02 05:55 | disposition home or self-care (01) ==
LOC: ED 02:38
DX: J44.1 Chronic obstructive pulmonary disease with (acute) exacerbation (principal); M54.16 Radiculopathy, lumbar region; J40 Bronchitis, not specified as acute or chronic; F20.0 Paranoid schizophrenia; I10 Essential (primary) hypertension; Z79.899 Other long term (current) drug therapy; Z88.8 Allergy status to other drugs, medicaments and biological substances; Z98.890 Other specified postprocedural states
CPT/HCPCS: 36415; 71046; 80053; 82550; 82553; 83880; 84484; 85025; 85379; 93005; 94640; 94644

== ENCOUNTER 2021-07-18 03:57 | Emergency (ER) | payer BC, OTHER ==
[2021-07-18 04:23] VITALS: BP 152/90
== END 2021-07-18 05:00 ==
LOC: ED 03:57
DX: R51.9 Headache, unspecified (principal); R42 Dizziness and giddiness; Z53.21 Procedure and treatment not carried out due to patient leaving prior to being seen by health care provider